=== PATIENT | female | born 1965 | race Caucasian/White ===

== ENCOUNTER 2016-10-11 17:18 | Emergency (ER) | payer SELFPAY ==
[~2016-10-11] VITALS: Ht 160 cm; Wt 86.4 kg
[~2016-10-11 17:18] MED LIST: BP MED
[2016-10-11] MEDS ORDERED: DIAZEPAM 2 MG TABLET PO ONE (19:00)
[2016-10-11] MEDS ORDERED: IBUPROFEN 600 MG TABLET PO ONE (19:00)
[2016-10-11 22:27] VITALS: BP 137/80
== END 2016-10-11 22:29 | disposition home or self-care (01) ==
LOC: EMS 17:19
DX: S16.1XXA Strain of muscle, fascia and tendon at neck level, initial encounter (principal); M54.6 Pain in thoracic spine; R03.0 Elevated blood-pressure reading, without diagnosis of hypertension; I10 Essential (primary) hypertension; V49.50XA Passenger injured in collision with unspecified motor vehicles in traffic accident, initial encounter; Y93.89 Activity, other specified; Y92.411 Interstate highway as the place of occurrence of the external cause; Y99.8 Other external cause status
CPT/HCPCS: 72040; 72072; 99284